=== PATIENT | female | born 2000 | race Hispanic/Latino ===

== ENCOUNTER 2021-11-10 16:32 | Emergency (ER) | payer SELFPAY ==
[2021-11-10 19:16] LABS: Bilirubin Neg (Negative); Blood, Urine 10 (Negative); Clarity Clear (Clear); Glucose, Urine (Dipstick) Normal (Negative); Ketone, Urine Negative (Negative); Leukocyte 500 (Negative); Nitrite Negative (Negative); Protein, Urine (Dipstick) Negative (Neg-Trace); Urobilinogen Normal mg/dL (Less than 2)
[2021-11-10 19:27] LABS: Bacteria/HPF 2+ HPF (None Seen); RBC/HPF 0-3 HPF (0-3)
[2021-11-10 19:28] LABS: WBC/HPF Greater Than 50 HPF (0-3); Yeast-Budding Rare HPF (None Seen)
== END 2021-11-10 19:46 | disposition home or self-care (01) ==
LOC: CSHERS 16:32
DX: O23.41 Unspecified infection of urinary tract in pregnancy, first trimester (principal); N39.0 Urinary tract infection, site not specified
CPT/HCPCS: 76856; 81003; 81015; 87077; 87086; 87186

== ENCOUNTER 2022-06-20 00:36 | Inpatient (IN) | payer MEDICAID, OTHER ==
[2022-06-20] MEDS ORDERED: hydrALAZINE 20 MG/ML VIAL SLOW IVP PRN ×2 (01:39→08:27)
[2022-06-20] MEDS ORDERED: Methylergonovine 0.2 MG/ML VIAL IM PRN (01:39)
[2022-06-20] MEDS ORDERED: Misoprostol 200 MCG TAB PR PRN (01:39)
[2022-06-20] MEDS ORDERED: Diphenoxylate HCl/Atropine Tablet PO PRN ×2 (01:39→15:00)
[2022-06-20] MEDS ORDERED: Carboprost 250 MCG/ML AMP IM PRN (01:39)
[2022-06-20] MEDS ORDERED: Tranexamic Acid 1,000 MG/10 ML VIAL IVP PRN (01:39)
[2022-06-20] MEDS ORDERED: Acetaminophen 500 MG TAB PO PRN (01:39)
[2022-06-20] MEDS ORDERED: Ondansetron PF 4 MG/2 ML Vial IVP PRN ×3 (01:39→08:27)
[2022-06-20 01:41] VITALS: BMI 21.4
[2022-06-20] MEDS ORDERED: Famotidine/PF 20 mg/2ml Vial SLOW IVP PRN (01:42)
[2022-06-20] MEDS ORDERED: Bicitra 30 ML UDCUP PO PRN (01:42)
[2022-06-20] MEDS ORDERED: Morphine PF 10 MG/10 ML VIAL ONE (01:45)
[2022-06-20] MEDS ORDERED: Lactated Ringer's 1,000 ML IV SCH (01:45)
[2022-06-20] MEDS ORDERED: NS w/ Oxytocin 30 units 500 ML IV SCH (01:45)
[2022-06-20] MEDS ORDERED: CEFAZOLIN 2 GM in Sodium Chloride 0.9% 100 ML IVPB SCH (01:45)
[2022-06-20] MEDS ORDERED: Azithromycin 500 MG in Sodium Chloride 0.9% 250 ML 250 ML IVPB SCH (01:45)
[2022-06-20] MEDS ORDERED: Dexamethasone 4 mg/ml Vial ONE (01:49)
[2022-06-20] MEDS ORDERED: Ondansetron PF 4 MG/2 ML Vial ONE (01:49)
[2022-06-20] MEDS ORDERED: PHENYLEPHRINE-NS 100 MCG/ML 10 ML SYRINGE ONE (01:50)
[2022-06-20] MEDS ORDERED: Phenylephrine 40 MG/NS 250 ML 250 ML ONE (01:50)
[2022-06-20] MEDS ORDERED: Oxytocin 10 UNITS/ML VIAL ONE (01:50)
[2022-06-20 01:51] LABS: Hemoglobin 10.9 g/dL (12.0-15.5); Mean Corpuscular HGB CONC 32.5 g/dL (32.0-36.0); Mean Corpuscular Hemoglobin 25.5 pg (27.0-33.0); Mean Corpuscular Volume 78.5 fl (81.6-98.3); Mean Platelet Volume 10.4 fl (7.4-10.4); Platelet Count 303 10x3/uL (150-450); RBC Distribution Width 14.8 % (11.5-14.5); Red Blood Cell (RBC) Count 4.27 10x6/uL (3.90-5.03); White Blood Cell (WBC) Count 9.3 10x3/uL (3.5-10.5)
[2022-06-20 02:23] LABS: HBSAg Index 0.15 S/CO (0-0.99); Hep B Surf Ag - L&D Non-Reactive S/CO (NonReactive)
[2022-06-20 02:24] LABS: Syphilis Antibody Nonreactive (Nonreactive); Syphilis Antibody Index 0.05 S/CO (<1.00 Non-Reactive)
[2022-06-20] MEDS ORDERED: Ketorolac Tromethamine 30 MG/ML VIAL ONE (02:26)
[2022-06-20] MEDS ORDERED: Naloxone HCl 0.4 mg/ml Vial IV PRN (02:55)
[2022-06-20] MEDS ORDERED: Promethazine HCl 25 MG SUPP PR PRN (02:55)
[2022-06-20] MEDS ORDERED: Promethazine HCl 25 MG/ML VIAL IM PRN ×2 (02:55→08:27)
[2022-06-20] MEDS ORDERED: Ketorolac Tromethamine 30 MG/ML VIAL IVP PRN (02:55)
[2022-06-20] MEDS ORDERED: Naloxone HCl 0.4 mg/ml Vial IVP PRN ×2 (02:55)
[2022-06-20] MEDS ORDERED: diphenhydrAMINE 50 MG/ML VIAL IVP PRN (02:55)
[2022-06-20] MEDS ORDERED: Moisturizing Cream (Eucerin) 113 GM JAR TOP PRN (02:55)
[2022-06-20] MEDS ORDERED: Communication Order-Pharmacy FS SCH (03:00)
[2022-06-20] MEDS ORDERED: HYDROcodone/Acetaminophen 5/325 mg Tablet PO PRN (08:27)
[2022-06-20] MEDS ORDERED: Meperidine HCl/PF 25 MG/ML VIAL IM PRN (08:27)
[2022-06-20] MEDS ORDERED: diphenhydrAMINE 25 MG CAP PO PRN (08:27)
[2022-06-20] MEDS ORDERED: Bisacodyl 10 MG SUPP PR PRN (08:27)
[2022-06-20] MEDS ORDERED: Boostrix 0.5 ML (Tdap) VIAL (>/=7 yrs of age) IM ONE (08:27)
[2022-06-20] MEDS ORDERED: Lanolin Ointment 7 GM TUBE TOP PRN (08:27)
[2022-06-20] MEDS: Simethicone Chewable 80 MG TAB PO PRN ×2 (08:44→14:43)
[2022-06-20] MEDS: Prenatal Vitamin 1 TAB PO SCH (08:47)
[2022-06-20] MEDS: Ferrous Sulfate 325 MG TAB PO SCH (08:47)
[2022-06-20] MEDS: Docusate 100 MG CAP PO SCH ×2 (08:50→22:45)
[2022-06-20] MEDS: Ketorolac Tromethamine 30 MG/ML VIAL IVP SCH ×3 (11:15→22:44)
[2022-06-21] MEDS: Simethicone Chewable 80 MG TAB PO PRN (05:22)
[2022-06-21] MEDS: Ibuprofen 800 MG TAB PO SCH ×3 (05:22→22:05)
[2022-06-21 07:23] LABS: Hemoglobin 8.9 g/dL (12.0-15.5); Mean Corpuscular Volume 78.9 fl (81.6-98.3); Mean Platelet Volume 10.2 fl (7.4-10.4); Platelet Count 262 10x3/uL (150-450); RBC Distribution Width 14.9 % (11.5-14.5); Red Blood Cell (RBC) Count 3.42 10x6/uL (3.90-5.03); White Blood Cell (WBC) Count 12.4 10x3/uL (3.5-10.5)
[2022-06-21] MEDS: Ferrous Sulfate 325 MG TAB PO SCH ×3 (09:00→22:05)
[2022-06-21] MEDS: Docusate 100 MG CAP PO SCH ×2 (09:02→22:06)
[2022-06-21] MEDS: Prenatal Vitamin 1 TAB PO SCH (09:02)
[2022-06-21] MEDS: HYDROcodone/Acetaminophen 5/325 mg Tablet PO PRN ×2 (09:03→18:20)
[2022-06-22] MEDS: Ibuprofen 800 MG TAB PO SCH (05:16)
[2022-06-22 08:00] VITALS: BP 108/59; TEMP 98.5
[2022-06-22] MEDS: Prenatal Vitamin 1 TAB PO SCH (08:29)
[2022-06-22] MEDS: Ferrous Sulfate 325 MG TAB PO SCH (08:29)
[2022-06-22] MEDS: Docusate 100 MG CAP PO SCH (08:30)
[2022-06-22] MEDS: HYDROcodone/Acetaminophen 5/325 mg Tablet PO PRN (10:49)
== END 2022-06-22 12:00 | disposition home or self-care (01) | DRG 788 ==
LOC: CSHLD/OP 00:36 → CSHLD 02:35 → CSHPP 05:35
PROVIDERS: ADMIT Family Medicine; ATTEND Family Medicine
PROC: 10D00Z1 Extraction of Products of Conception, Low, Open Approach (ICD-10-PCS; principal; 2022-06-20)
DX: O32.1XX0 Maternal care for breech presentation, not applicable or unspecified (principal); Z3A.38 38 weeks gestation of pregnancy; Z37.0 Single live birth; Z79.899 Other long term (current) drug therapy
CPT/HCPCS: 36415; 51702; 85027; 86780; 86850; 86900; 86901; 87340; 99285; J1100; J1885; J2274; J2405; J2590; J3490; J7120